=== PATIENT | male | born 1960 | race Caucasian/White ===

== ENCOUNTER 2016-11-18 13:53 | Emergency (ER) | payer OTHER ==
[~2016-11-18] VITALS: Ht 170.2 cm; Wt 117.9 kg
[~2016-11-18 13:53] MED LIST: ASPIR 8181 MG PO; DEMEROL HYDROCH50 MG PO; DILAUDID2 MG PO; FLEXERIL10 MG PO; IBUPROFEN800 M1 PO; MOTRIN800 MG PO; NAPROSYN375 MG PO; NORFLEX30 MG/ML PO; PERCOCET 325 MG1 TA2 PO; ULTRAM50 M1 PO; VICODIN5-300 PO
--- NOTE | 2016-11-18 14:39 | RADIOLOGY REPORT ---
EXAMINATION: XR ANKLE, LEFT CLINICAL INFORMATION: Pain after twisting injury. Evaluate for fracture. COMPARISON: None TECHNIQUE: AP, lateral, and mortise views of the left ankle. FINDINGS: Diffuse soft tissue swelling of the lower extremity, ankle and foot. The talar dome is well-positioned within the ankle mortise. No acute malleolar fracture or subluxation. There is an old, healed fracture of the distal fibular metadiaphysis. Small focus of ossification at the tip of the medial malleolus is likely sequela of remote trauma. There is minimal cortical irregularity of the lateral talus in the region of attachment of the anterior talofibular ligament. The chronicity of this finding is uncertain. There is mild osteophyte formation at the dorsal aspect of the talonavicular joint and midfoot. IMPRESSION: 1. Nonspecific soft tissue swelling of the extremity. 2. Old, healed fracture of the distal fibular metadiaphysis. 3. Possible small avulsion fracture of the lateral talus in region of attachment of the anterior talofibular ligament. Question whether patient has pain in this specific location.
[2016-11-18 16:24] VITALS: BP 142/62
--- NOTE | 2016-11-18 16:38 | ED ANKLE/FOOT INJURY COMPLAINT ---
History of Present Illness General Chief Complaint: Foot or Ankle Injury Stated Complaint: TWISTED L ANKLE Source: patient Exam Limitations: no limitations Vital Signs & Intake/Output Vital Signs & Intake/Output Vital Signs Date Time Temp Pulse Resp B/P Pulse O2 O2 Flow FiO2 Ox Delivery Rate 11/18 1624 99.0 93 18 142/62 95 Room Air 11/18 1603 95 Room Air 11/18 1358 97.6 90 18 137/76 96 Room Air Allergies Coded Allergies: NO KNOWN ALLERGIES (03/09/15) Reconcile Medications Aspirin (Ecotrin) 81 MG TABLET.DR 1 TAB PO DAILY HEART (Reported) HYDROCODONE/ACETAMINOPHEN (Hydrocodon-Acetaminophen 5-325) 1 TAB TAB 1 TAB PO BID PRN Back pain Ibuprofen 800 MG TABLET 1 TAB PO TID PRN pain Naproxen (Naprosyn) 375 MG TAB 1 TAB PO TID PRN Back pain Orphenadrine Citrate (Norflex) 30 MG/ML MICKEY 1 TAB PO TID PRN Back spasms Oxycodone HCl/Acetaminophen (Percocet 5-325 MG Tablet) 5 MG-325 MG TABLET 1-2 TAB PO Q6P PRN pain Tramadol HCl (Ultram) 50 MG TABLET 1-2 TAB PO TID PRN pain twenty...[id number] Triage Note: PT STATES HE TWISTED HIS LEFT ANKLE ON THURSDAY. PT STATES YESTERDAY IT BEGAN TO SWELL AND TODAY HE JUST CAN'T GET COMFORTABLE. PT WALKING WITH CRUTCHES FROM HOME. PT HAS BEEN TAKING ALEEVE FOR THE PAIN WITH LITTLE RELIEF. HOME Triage Nurses Notes Reviewed? yes Duration: day(s): (4), constant, continues in ED Timing: recent history Severity: moderate, severe Pain/Injury Location: Left: Ankle. Method of Injury: twisted No Modifying Factors: none HPI: 56-year-old male comes into emergency room with complaints of left ankle pain. Patient reports she twisted it 4 days ago and a pothole. Sharp throbbing pain. Associated swelling. Difficulty walking on it today. Comes in for further evaluation. Denies any trauma or injury anywhere else. Past History Travel History Traveled to [place] past 21 day No Medical History Any Pertinent Medical History? 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 No Review of Systems Review of Systems Constitutional: Reports: no symptoms. EENTM: Reports: no symptoms. Respiratory: Reports: no symptoms. Cardiovascular: Reports: no symptoms. GI: Reports: no symptoms. Genitourinary: Reports: no symptoms. Musculoskeletal: Reports: see HPI. Skin: Reports: no symptoms. Neurological/Psychological: Reports: no symptoms. Hematologic/Endocrine: Reports: no symptoms. Immunologic/Allergic: Reports: no symptoms. All Other Systems: Reviewed and Negative Physical Exam Physical Exam General Appearance: well developed/nourished, mild distress Head: atraumatic Eyes: Bilateral: normal appearance, EOMI. Ears, Nose, Throat: normal ENT inspection, hearing grossly normal Neck: normal inspection Cardiovascular/Respiratory: no respiratory distress Back: normal inspection Leg/Knee/Thigh Left: normal range of motion, normal inspection Ankle Left: soft tissue tenderness, swelling, limited range of motion Foot Left: limited range of motion Neuro/Vascular: normal motor function, normal sensation Tendon: normal tendon function Psychiatric: awake, alert, oriented x 3 Skin: intact, normal color, warm/dry Progress Differential Diagnosis: fracture, dislocation, sprain, contusion, compartmental syndrome Plan of Care: 11/18/2016 9:45:30 PM Patient treated as a fracture. Nonweightbearing. Follow-up with orthopedic doctor. This information was gleaned to the patient. Diagnostic Imaging: Viewed by Me: Radiology Read. Discussed w/RAD: Radiology Read. Radiology Impression: SERVICE DATE: 11/18/16 EXAM TYPE: RAD - XRY-ANKLE 3 OR MORE VIEWS L EXAMINATION: XR ANKLE, LEFT CLINICAL INFORMATION: Pain after twisting injury. Evaluate for fracture. COMPARISON: None TECHNIQUE: AP, lateral, and mortise views of the left ankle. FINDINGS: Diffuse soft tissue swelling of the lower extremity, ankle and foot. The talar dome is well-positioned within the ankle mortise. No acute malleolar fracture or subluxation. There is an old, healed fracture of the distal fibular metadiaphysis. Small focus of ossification at the tip of the medial malleolus is likely sequela of remote trauma. There is minimal cortical irregularity of the lateral talus in the region of attachment of the anterior talofibular ligament. The chronicity of this finding is uncertain. There is mild osteophyte formation at the dorsal aspect of the talonavicular joint and midfoot. IMPRESSION: 1. Nonspecific soft tissue swelling of the extremity. 2. Old, healed fracture of the distal fibular metadiaphysis. 3. Possible small avulsion fracture of the lateral talus in region of attachment of the anterior talofibular ligament. Question whether patient has pain in this specific location. DICTATED BY: BAKARI RUSSELL MD DATE/TIME DICTATED:11/18/161426 RIDING COACH:SONYA DATE/TIME TRANSCRIBED:11/18/161426 Departure Departure Disposition: HOME OR SELF CARE Condition: Stable Clinical Impression Primary Impression: Avulsion fracture of left ankle Referrals: SUZIE MORTENSEN,REYMUNDO Guadarrama (PCP/Family) MATHEW MORTENSEN,ANTONIO Additional Instructions: Ice. Rest. Elevation. Take Percocet as prescribed. Follow-up with orthopedic doctor provided. Return if any concerns worsening symptoms. Please go over all results of today's visit with your primary care doctor. Contact your primary care doctor to let them know you were here in the emergency room. There may be nonspecific findings which may not be related to your visit today here in the emergency room but may require further evaluation and chronic monitoring by your primary care doctor. If you had a laceration today the chance of foreign body always remains. You should follow-up with your primary care doctor for recheck in 3-5 days for a wound check. If you had an x-ray done there is a chance that a fracture could have been missed on initial read and you should follow-up with your primary care doctor for repeat x-rays if symptoms persist. If your blood pressure was elevated here in the emergency room please have rechecked by her primary care doctor within the next 48 hours by your primary care doctor. If you were prescribed a narcotic here in the emergency room or any type of controlled substances you're not allowed to drive while taking this medication or operate any type of heavy machinery. Narcotics can make you feel lightheaded dizziness nausea and can cause constipation. You may need to nut picker a stool softener. Thank you for choosing [facility] emergency room. Please return to the emergency room immediately if you have any other concerns worsening of symptoms. Departure Forms: Customer Survey General Discharge Information Prescriptions: Current Visit Scripts Oxycodone HCl/Acetaminophen (Percocet 5-325 MG Tablet) 1-2 TAB PO Q6P PRN pain #15 TAB Procedures Splinting Location: left ankle Manual Alignment Performed: No Pre-Made Type: pneumatic boot Splint Applied By: splint applied by me Pre-Proc Neuro Vasc Exam: normal Post-Proc Neuro Vasc Exam: normal
[2016-11-18] MEDS ORDERED: PERCOCET 5-3251 EACH PO (16:40)
== END 2016-11-18 16:57 ==
LOC: ERH 13:53
DX: S92.155A Nondisplaced avulsion fracture (chip fracture) of left talus, initial encounter for closed fracture (principal); X50.9XXA Other and unspecified overexertion or strenuous movements or postures, initial encounter; Y93.9 Activity, unspecified; Y92.9 Unspecified place or not applicable
CPT/HCPCS: 73610-LT